=== PATIENT | male | born 1990 | race Caucasian/White ===

== ENCOUNTER 2021-08-27 14:00 | Emergency (ER) | payer MEDICAID ==
[~2021-08-27] VITALS: Ht 182.9 cm; Wt 104.0 kg
[2021-08-27 15:03] LABS: CHLORIDE 106 mEq/L (98-107)
[2021-08-27 15:06] LABS: HEMOGLOBIN. 13.8 g/dL (14.0-18.0); MEAN CORPUSCULAR VOLUME 83.3 fL (80.0-94.0); MEAN PLATELET VOLUME 8.8 fl (7.4-10.4); PLATELET 242 x1000/uL (130-400); RED BLOOD CELL COUNT 4.92 mill/uL (4.7-6.1); RED CELL DISTRIBUTION WIDTH 19.1 % (11.6-14.6)
[2021-08-27 17:07] LABS: PLATELET ESTIMATE NORMAL
[2021-08-27 17:08] VITALS: BP 154/87
== END 2021-08-27 18:59 | disposition home or self-care (01) ==
LOC: ER 14:48
DX: F41.9 Anxiety disorder, unspecified (principal); F15.10 Other stimulant abuse, uncomplicated; F14.10 Cocaine abuse, uncomplicated
CPT/HCPCS: 36415; 80053; 85025; 99284